=== PATIENT | female | born 1975 | race Caucasian/White ===

== ENCOUNTER → 2016-04-24 | Outpatient (CLI) | payer OTHER ==
[~2016-04-24] MED LIST: CELE100C PO; DICY10CA53 PO; METH-38 AD; OMEP20TA63 PO; PROG100C2 PO; PROG100C7 PO
--- NOTE | 2016-04-25 07:54 | PAIN ---
DATE OF SERVICE: 04/24/2016 INITIAL CONSULTATION OF PAIN CLINIC CHIEF COMPLAINT: Right-sided pain and mid back pain. HISTORY OF PRESENT ILLNESS: This patient is a 40-year-old female who presents with history of pain since November 2015, not a result of any specific injury or action that she is aware of, but has pain radiating into the right flank and the right inferior aspect of the rib margin and right upper quadrant of the abdomen since that time. The patient reports a sharp, stabbing with numbness and tingling in the anterior aspect of the lower rib cage, burning sensation in the mid upper abdomen. The patient has gone through several workouts through her primary care physician and found no significant findings in the abdomen or chest. She has chiropractic treatment, which helps with the low back as she has some low back pain which she reports as chronic, but this is very different from that. The patient reports that it is present, worse at night, awakens her at least 2-3 times at night, but does not affect her bowel or bladder control, but does affect her ability to walk and sit at her chair when she is at work, and she cannot get comfortable because of the pain that is a stinging and stabbing pain in the right side and anterior aspect of the inferior rib margin and abdomen. The patient reports no radiation to the lower extremities or upper extremities, upper mid back or low back. The patient reports her disability rating of the pain on 0 to 10, 10 being the worst, as 3 with family and home responsibilities and sexual behavior, 8 with recreation, and 9 with life support activities, 1 with social activity, 5 with occupation and 0 with self-care activities. The patient has tried Robaxin as well as Tylenol Arthritis strength which does help the pain decrease, but only about 50%. Again, the chiropractic treatment has helped her low back, but not this pain on the right side. The patient did have an MRI scan of the thoracic spine dated 03/05/2016 showing at T11-T12, a small right paracentral disk protrusion effacing the right ventral thecal sac and at T12-L1, a small broad-based central disk protrusion asymmetric disk bulge resulting in minimal flattening of the ventral thecal sac. PAST MEDICAL HISTORY: Significant for dizziness and headaches, low back pain and arthritis. PREVIOUS SURGERY: Include cholecystectomy, left foot bone spur removal, left shoulder surgery and a cervical spinal fusion. CURRENT MEDICATIONS: Include progesterone and Robaxin. ALLERGIES: THE PATIENT IS ALLERGIC TO SULFA. FAMILY HISTORY: Significant for back pain and arthritis. Also significant for tumors, heart disease, and hypertension. 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 REVIEW OF SYSTEMS: Positive for those items mentioned in history of present illness. All systems reviewed and otherwise negative. It is complete, full and well documented on the patient's chart. PHYSICAL EXAMINATION: VITAL SIGNS: Today, blood pressure 115/79, pulse 78, respirations 16, and temperature 98.6 degrees Fahrenheit. Height is 5 feet 2 inches and weighs 177 pounds. GENERAL: The patient is awake, alert, oriented, appropriate, and very pleasant demeanor. HEENT: Head shows normocephalic and atraumatic. Extraocular movements are intact and symmetrical. Oral cavity, mucous membranes moist and pink. Dentition is intact. NECK: Shows anterior throat supple without palpable lymphadenopathy noted. Swallow reflex is symmetrical. CHEST: Shows normal on inspection. Breath sounds are clear to auscultation bilaterally. HEART: Shows S1 and S2 clear. No murmurs auscultated. ABDOMEN: Soft, nontender, and nondistended. BACK: The patient's right rib margin shows some mild tenderness with palpation in the inferior aspect of the last 2 ribs in the rib margin itself as well as the soft tissue and abdominal wall anteriorly to the lateral aspect on the right side only. No masses are palpated. No rashes are demonstrated. No skin abnormalities throughout and this is true on the lateral aspect of the mid axillary line as well as to the posterior thoracic distribution of the back without abnormalities noted. No asymmetry in the musculature or palpable masses, nodes or muscles in this region. Left side is negative as well. The patient's back shows spine grossly midline, normal appearing cervical lordotic curvature, thoracic kyphotic curvature, and lumbar lordotic curvature. No significant difference with the appearance of the paraspinous musculature throughout the thoracic and lumbar paraspinous muscles. The patient shows good rotation motion of thoracic extension and flexion, right and left lateral rotation as well as lumbar lateral rotation, extension and flexion without exacerbation of pain on the right side. IMPRESSION: 1. This is a 40-year-old female with approximately 4-month history of mid and low back pain with radiating pain into the right inferior rib margin and right abdomen with some qualities of radicular pain. 2. MRI scan of thoracic spine as noted. 3. History of arthritis and low back pain. PLAN: Options were discussed with the patient including conservative medical management with physical therapy. She is doing exercises on her own and has had some chiropractic treatment as well, taking Tylenol and Robaxin without significant improvement. We did discuss a possible thoracic epidural steroid injection at T11-T12 spot at the site of the 2 paracentral disk protrusions to see if this is causing radicular pain as it appears to be by description and symptoms on the right side with right-sided disk protrusion at T11-T12. The patient will try Medrol Dosepak. In the meantime, she was given instruction and side effects to be aware with the medications. We will have her preauthorized with her insurance provider for a thoracic epidural steroid injection on her next visit. KARO MATTHEWS MD DR: DREW/lydia JOB#: [id number] / [id number]
== END | disposition home or self-care (01) ==
LOC: PNCL 07:54
PROVIDERS: ATTEND Anesthesiology
DX: M54.9 Dorsalgia, unspecified (principal); R10.9 Unspecified abdominal pain
CPT/HCPCS: 99213

== ENCOUNTER → 2016-05-12 | Outpatient (CLI) | payer OTHER ==
[~2016-05-12] MED LIST changes: +IOHEXOL 180 MG/ML 10 ML VIAL. ONE; +methylPREDNISolone ACETATE 40 MG/ML VIAL. ONE; +methylPREDNISolone ACETATE 80 MG/ML VIAL. ONE
--- NOTE | 2016-05-12 12:15 | PN ---
DATE: 05/12/2016 PROGRESS NOTE FOR PAIN CLINIC DIAGNOSES: Thoracic radiculopathy with thoracic degenerative disk disease. HISTORY OF PRESENT ILLNESS: The patient is a 40-year-old female who returns for followup, status post initial evaluation and Medrol Dosepak, which she reports helped about 50% with the pain in her back and right flank and right side. The patient reports also some right upper quadrant pain, but this is much less with the Medrol Dosepak. The patient reports it is still there, not quite a sore and much less sore in the back, but still there is some pain around the right flank and right upper quadrant. The patient reports the pain is a 4 on a scale of 10 currently, reports no new motor or sensory deficits, no new bowel or bladder incontinence or other complaints. PHYSICAL EXAMINATION: VITAL SIGNS: Today, the patient's blood pressure is 129/86, pulse 87, respirations 18, temperature 98.1 degrees Fahrenheit. Height is 5 feet 2 inches, weight is 180 pounds. GENERAL: The patient is awake, alert, oriented, appropriate, has a very pleasant demeanor. HEENT: Head shows normocephalic, atraumatic. Extraocular movements are intact and symmetrical. Oral cavity has mucous membranes moist and pink. Dentition is intact. NECK: Shows anterior throat supple without palpable lymphadenopathy noted. Swallow reflex is symmetrical. CHEST: Shows normal on inspection. Breath sounds are clear to auscultation bilaterally. HEART: Shows S1 and S2 clear. ABDOMEN: Soft, nontender, nondistended. No palpable organomegaly is noted. No rebound or guarding demonstrated. BACK: The patient's back shows spine grossly in the midline, the normal-appearing thoracic kyphosis and lumbar lordotic curvature. The patient's right flank shows some mild tenderness with palpation, but only very mildly and only diffusely, much less than on previous exam. No tenderness over the right upper quadrant. No palpable organomegaly once again and no rebound. Options were discussed with the patient. The patient's old chart was reviewed as her current medication regimen and updated. Current review of systems updated today as well. We will proceed with a thoracic epidural steroid injection today at the T11-T12 level with fluoroscopic guidance. Risks were again discussed including, but not limited to bleeding, infection, possibility of epidural hematoma, subsequent neurologic compromise, dural puncture, headaches, spinal cord and/or nerve damage, side effects of steroid medication and poor results regarding pain control. The patient understands and wishes to proceed. The patient will return to clinic in approximately 2 weeks for followup. He was counseled as to return appointment, activity level and side effects to be aware of. DIAGNOSES: Thoracic radiculopathy with thoracic degenerative disk disease. PROCEDURE: Thoracic epidural steroid injection in translaminar approach at the T11-T12 level using local anesthetic under sterile prep and drape with C-arm fluoroscopic guidance. Medication injected is 120 mg Depo-Medrol plus 10 mL of preservative-free normal saline and 2 mL of Isovue for contrast. CONDITION AT DISCHARGE: Stable. The patient tolerated procedure well, had no complications. KARO MATTHEWS MD DR: DREW/lydia JOB#: [id number] / [id number]
== END | disposition home or self-care (01) ==
LOC: PNCL 07:41
PROVIDERS: ATTEND Anesthesiology
DX: M51.14 Intervertebral disc disorders with radiculopathy, thoracic region (principal)
CPT/HCPCS: 62321; J1030; J1040

== ENCOUNTER → 2016-07-01 | Outpatient (CLI) | payer OTHER ==
--- NOTE | 2016-07-02 09:42 | PAIN ---
DATE OF SERVICE: 07/01/2016 PROGRESS NOTE FOR PAIN CLINIC DIAGNOSES: Thoracic radiculopathy with thoracic degenerative disk disease. HISTORY OF PRESENT ILLNESS: The patient is a 40-year-old female, who returns for followup status post thoracic epidural steroid injection x 1 on 05/12/2016. The patient reports she did very well for sleep was near 100% improvement. After that time, the pain gradually returned in the mid lower back. The patient reports some pain on the left side and the shoulder as well, but mostly in the mid back itself, on the left side greater than right, essentially bilaterally. The patient reports it has been awakened her from sleep again, get up in the middle of the night, repositioned, take pain medication and to get through the night as well. The patient reports no new motor or sensory deficits, no new bowel or bladder incontinence or other complaints, but still significant pain is noted. The patient reports pain is burning, stabbing, shooting tight and dull ____ sharp, rates as 9 on a scale of 10. It is worst at 7 at least. PHYSICAL EXAMINATION: VITAL SIGNS: Today, the patient's blood pressure is 114/81, pulse 80, respirations 18, temperature 98.2 degrees Fahrenheit, height is 5 feet 2 inches, weighs 179 pounds. GENERAL: The patient is awake, alert, oriented, appropriate, very pleasant demeanor. HEENT: Shows normocephalic, atraumatic. Extraocular movements are intact, symmetrical. Oral cavity, mucous membranes are moist and pink. Dentition is intact. NECK: Shows anterior throat supple without palpable lymphadenopathy noted. Swallow reflex is symmetrical. CHEST: Shows normal on inspection. Breath sounds clear to auscultation bilaterally. HEART: Shows S1 and S2 clear. ABDOMEN: Soft, nontender, nondistended. No palpable organomegaly, no rebound or guarding demonstrated. BACK: Shows spine grossly midline. Normal appearing thoracic kyphosis and lumbar lordotic curvature. The patient's low thoracic distribution paraspinous muscle shows some [id number] tenderness ____ symmetrical in appearance as is the upper lumbar distribution with some diffuse tenderness bilaterally in the lumbar paraspinous muscles without radiation. Options were discussed with the patient. The patient's old chart was reviewed as her current medication regimen updated. Current review of systems updated today as well. We will proceed with a second thoracic epidural steroid injection at T11-T12 level with fluoroscopic guidance. Risks were again discussed including, but not limited to bleeding, infection, possibility of epidural hematoma, subsequent neurologic compromise, dural puncture, headaches, spinal cord and/or nerve damage, side effects of steroid medication and poor results regarding pain control. The patient understands and wishes to proceed. The patient will return to clinic in approximately 2 weeks for followup, was counseled on return appointment, activity level and side effects to be aware of. DIAGNOSES: Thoracic radiculopathy with thoracic degenerative disk disease. PROCEDURE: Thoracic epidural steroid injection in translaminar approach at T11-T12 level using C-arm fluoroscopic guidance under sterile prep and drape using local anesthetic. MEDICATION INJECTED: A total of 120 mg Depo-Medrol plus 10 mL of preservative-free normal saline and 2 mL of Isovue for contrast. CONDITION AT DISCHARGE: Stable. The patient tolerated procedure well, had no complications. KARO MATTHEWS MD DR: DREW/nts JOB#: [id number] / [id number]
== END | disposition home or self-care (01) ==
LOC: PNCL 10:31
PROVIDERS: ATTEND Anesthesiology
DX: M51.14 Intervertebral disc disorders with radiculopathy, thoracic region (principal)
CPT/HCPCS: 62321; J1030; J1040

== ENCOUNTER → 2016-08-11 | Outpatient (CLI) | payer OTHER ==
[~2016-08-11] MED LIST changes: +PROG100C15 PO; -PROG100C7 PO
--- NOTE | 2016-08-11 17:32 | PAIN ---
DATE OF SERVICE: 08/11/2016 PROGRESS NOTE FOR PAIN CLINIC DIAGNOSES: Thoracic radiculopathy with thoracic degenerative disk disease. HISTORY OF PRESENT ILLNESS: The patient is a 41-yelena-old female, who returns for followup status post thoracic epidural steroid injections x 2, last seen on 07/01/2016. The patient reports she did well, but only for a few days after the injections, each time with near 100% improvement initially, but with only about 4 or 5 days of decreased pain. The patient reports the pain is in the mid back, low back radiating to the right side as it was previously. The patient reports 1 episode, where she has been increased low back pain radiating to bilateral posterior gluteus and thighs, which was very uncomfortable about 2 weeks ago, which is unable to change positions or stand and move for about 30 minutes. This is subsided on its own. The patient reports now it aching, tight shooting, tingling, burning and constant more on the right side across the mid back. The patient reports it is a 10 on a scale of 10 at its worst, is a 7 on average and 4th at least, is currently a 4 today. PHYSICAL EXAMINATION: VITAL SIGNS: The patient's blood pressure 115/78, pulse 76, respirations are 18, temperature 98.2 degrees Fahrenheit, height is 5 feet 2 inches, weighs 181 pounds. GENERAL: The patient is awake, alert, oriented, appropriate, very pleasant demeanor. HEENT: Head shows normocephalic, atraumatic. Extraocular movements are intact, symmetrical. Oral cavity, mucous membranes are moist and pink. Dentition is intact. NECK: Shows anterior throat supple without palpable lymphadenopathy noted. Swallow reflex is symmetrical. CHEST: Shows normal on inspection. Breath sounds clear to auscultation bilaterally. HEART: Shows S1 and S2 clear. ABDOMEN: Obese, soft, nontender, nondistended. No palpable organomegaly is noted. No rebound or guarding demonstrated. BACK: Shows spine grossly midline. Thoracic and lumbar paraspinous musculature is symmetrical on inspection with palpation in the low thoracic paraspinous musculature is very firm and tender, more on the right than the left, but this appears symmetrical, no evidence of atrophy, hypertrophy, no trigger points or radiation of pain. The patient shows good rotation and motion of the thoracic and lumbar spine, both laterally as well as extension and flexion without exacerbation of pain as well. Options were discussed with the patient. At this time, the patient's old chart was reviewed as her current medication regimen and updated. Current review of systems updated today as well. We will proceed with a third in the series of thoracic epidural steroid injection using fluoroscopic guidance. Risks were again discussed including, but not limited to bleeding, infection, possibility of epidural hematoma and subsequent neurologic compromise, dural puncture, headaches, spinal cord and/or nerve damage, side effects of steroid medication and poor results regarding pain control. The patient understands and wished to proceed. The patient will return to the clinic in approximately 2 weeks for followup, was counseled on return appointment, activity level and side effects to be aware of. DIAGNOSES: Thoracic radiculopathy with thoracic degenerative disk disease. PROCEDURES: Thoracic epidural steroid injection with C-arm fluoroscopic guidance under sterile prep and drape using local anesthetic. MEDICATIONS INJECTED: A total of 120 mg Depo-Medrol plus 10 of preservative-free normal saline and 2 mL of Isovue for contrast. CONDITION AT DISCHARGE: Stable. The patient tolerated procedure well, had no complications. KARO MATTHEWS MD DR: DREW/lydia JOB#: [id number] / [id number]
== END | disposition home or self-care (01) ==
LOC: PNCL 08:42
PROVIDERS: ATTEND Anesthesiology
DX: M51.14 Intervertebral disc disorders with radiculopathy, thoracic region (principal); Z88.2 Allergy status to sulfonamides
CPT/HCPCS: 62321; J1030; J1040

== ENCOUNTER → 2018-02-24 | Outpatient (CLI) | payer OTHER ==
[~2018-02-24] MED LIST changes: -IOHEXOL 180 MG/ML 10 ML VIAL. ONE; -methylPREDNISolone ACETATE 40 MG/ML VIAL. ONE; -methylPREDNISolone ACETATE 80 MG/ML VIAL. ONE
--- NOTE | 2018-02-24 16:52 | RAD ---
EXAM: Cervical spine, 3 views. HISTORY: Pain. COMPARISON: None. FINDINGS: 3 views of the cervical spine are obtained. There is instrumented intraspinal fusion and interbody fusion and C5-C6. There is degenerative endplate remodeling with anterior predominant spurring primarily at C6-T1. There is facet arthropathy at multiple levels. There is a tiny left cervical rib. IMPRESSION: 1. Instrumented fusion and C5-C6. 2. Multilevel degenerative change, primarily at the lower cervical levels. 2. Tiny left cervical rib. Electronically signed by: Risa Beltran MD (02/24/2018 4:48 PM) [facility]
== END | disposition home or self-care (01) ==
LOC: RAD 16:04
PROVIDERS: ATTEND Neurological Surgery
DX: M47.22 Other spondylosis with radiculopathy, cervical region (principal)
CPT/HCPCS: 72040

== ENCOUNTER → 2018-03-07 | Outpatient (CLI) | payer OTHER ==
[~2018-03-07] MED LIST changes: +PROG100C10 PO; -PROG100C2 PO; +SERT50TA PO
--- NOTE | 2018-03-07 20:59 | PAIN ---
DATE OF SERVICE: 03/07/2018 PROGRESS NOTE FOR PAIN CLINIC DIAGNOSES: Cervical radiculopathy with cervical degenerative disk disease and cervical post-laminectomy syndrome. HISTORY OF PRESENT ILLNESS: This is a 42-year-old female who returns for followup, last seen on 08/11/2016. The patient had thoracic epidural steroid injection at that time, did very well with 100% improvement for a limited period of time. The patient reports it as time has gone over the last year or so, the pain has begun to return in the base of her neck and shoulders, mostly in the right upper extremity greater than the left, radiating into the bilateral shoulders, bilateral posterior arms, forearms as well as the biceps and especially the triceps on the left. The patient reports it is aching, sharp, tight, shooting, stabbing, burning, cramping, tingling with constant pain, becoming more severe, more unbearable, worse with activity, worse with reaching her arms over her head, especially on the left side. The patient reports it is a 10 on a scale of 10 at its worst, 8 on average, 6 at its least and is a 7 today. The patient reports it is keeping her awake from sleep at night about every 4 hours, she has to wake up, reposition. She has been taking [place], which is helpful. The patient has been doing therapy on her own. She has had some physical therapy in the past and is doing the same exercises, also has been going to the gym at least 3 times a week but is down to twice a week now because of the pain, doing good strengthening and stretching exercises with her neck and shoulders as well as her upper extremities but does not seem to be decreasing the pain. The patient did try an oral prednisone pack as well, which is not significantly helpful as well. The patient reports no new loss of motor function but significant pain and radicular pain as noted. The patient did have new MRI scan of the cervical spine dated 02/08/2018 showing C5-C6 surgical changes of ACDF, dorsal osteophytic spurring noted at the level of the intervertebral disk space resulting in local contour deformity, bilateral neural foraminal normal appearance with mild central canal stenosis; C6-C7 shows broad-based posterior disk osteophyte complex with resulting in [id number] left and mild right foraminal narrowing with mild central canal stenosis as well as C7-T1 with osteophyte formation and minimal broad-based posterior disk osteophyte formation. PHYSICAL EXAMINATION: VITAL SIGNS: The patient's blood pressure is 113/77, pulse 83, respirations are 18 and temperature 98.5 degrees Fahrenheit. Height is 5 feet 2 inches and weighs 146 pounds. GENERAL: The patient is awake, alert, oriented, appropriate and very pleasant demeanor. HEENT: Head shows normocephalic and atraumatic. Extraocular muscles are intact and symmetrical. Oral cavity: Mucous membranes moist and pink. Dentition is intact. NECK: Shows anterior throat supple without palpable lymphadenopathy noted. Swallow reflex is symmetrical. CHEST: Shows normal with inspection. Breath sounds clear to auscultation bilaterally. HEART: Shows S1 and S2 clear. No murmurs auscultated. ABDOMEN: Soft, nontender and nondistended. No palpable organomegaly is noted. No rebound or guarding demonstrated. BACK: The patient's back shows spine grossly in the midline. Cervical lordotic curvature as well as a thoracic kyphotic curvature maintained. The patient's neck shows limited rotational motion, especially to the left side with significant pain in the past 45 degrees. Right side is more mobile but with significant pain as well past 45 degrees in the base of the neck on the right. Extension of the cervical spine is significantly tender bilaterally in the inferior aspect of the cervical paraspinous musculature as well as the trapezius muscles with some radiation into the left arm and posterior trapezius that is on the left with extension and full forward flexion was performed without difficulty and without pain reported. EXTREMITIES: The patient's upper extremities show deep tendon reflexes at 2+ in biceps, triceps tendons. 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 Biceps are 5/5 bilaterally. Peripheral pulses are 2+ radial distribution. No peripheral edema is noted bilaterally. Options were discussed with the patient. The patient's old chart was reviewed as well as her current medication regimen updated. Current review of systems updated today as well and we will preauthorize the patient for a cervical epidural steroid injection as she has significant radicular pain in the C5-C6 and C6-C7 dermatomal distribution, more on the left than the right but present bilaterally. The patient is currently doing physical therapy exercises, stretching and strengthening on her own as well as working out at the gym and will continue to do this as tolerated. We will encourage her to maintain the strength and stretching exercise, especially with the neck and shoulders. We will follow up in approximately 1 week. We will plan on cervical epidural steroid injection at that time. KARO MATTHEWS MD DR: DREW/lydia JOB#: [id number] / [id number]
== END | disposition home or self-care (01) ==
LOC: PNCL 14:53
PROVIDERS: ATTEND Anesthesiology
DX: M50.11 Cervical disc disorder with radiculopathy, high cervical region (principal); M96.1 Postlaminectomy syndrome, not elsewhere classified; M25.78 Osteophyte, vertebrae
CPT/HCPCS: G0463

== ENCOUNTER → 2018-03-14 | Outpatient (CLI) | payer OTHER ==
[~2018-03-14] MED LIST changes: +IOHEXOL 180 MG/ML 10 ML VIAL. ONE; -PROG100C10 PO; +PROG100C2 PO; +methylPREDNISolone ACETATE 40 MG/ML VIAL. ONE; +methylPREDNISolone ACETATE 80 MG/ML VIAL. ONE
--- NOTE | 2018-03-14 19:11 | PAIN ---
DATE OF SERVICE: 03/14/2018 PROGRESS NOTE FOR PAIN CLINIC DIAGNOSES: Cervical radiculopathy with cervical degenerative disk disease and post-cervical laminectomy syndrome. HISTORY OF PRESENT ILLNESS: The patient is a 42-year-old female who returns for followup status post initial evaluation and preauthorization for cervical epidural steroid injection. The patient has obtained that now and would like to proceed. The patient still has pain in the base of the neck and shoulders, right and left upper extremity, somewhat worse on the right than the left side. The patient reports no new motor or sensory deficits, no new changes. The patient reports her pain is an 8 on a scale of 10 at its worst, 7 on average, 3 at its least and is a 7 today. The patient reports it is aching, sharp, dull, shooting, stabbing, burning, tingling, radiating, becoming more severe with time. The patient reports it awakens her from sleep frequently. Does not report any new motor or sensory deficits. PHYSICAL EXAMINATION: VITAL SIGNS: The patient's blood pressure is 111/74, pulse 80, respirations are 16, temperature is 98.0 degrees Fahrenheit. Height is 5 feet 2 inches, weight is 146 pounds. GENERAL: The patient is awake, alert, oriented, appropriate, very pleasant demeanor. HEENT: Head shows normocephalic, atraumatic. Extraocular movements are intact and symmetrical. Oral cavity shows mucous membranes moist and pink. Dentition intact. NECK: Shows anterior throat supple without palpable lymphadenopathy noted. Swallow reflex symmetrical. CHEST: Shows normal with inspection. Breath sounds clear to auscultation bilaterally. HEART: Shows S1, S2 clear. No murmurs auscultated. ABDOMEN: Soft, nontender, nondistended. No palpable organomegaly is noted. No rebound or guarding demonstrated. BACK: Shows spine grossly in the midline, normal appearing cervical lordotic curvature, thoracic kyphotic curvature. Cervical paraspinous muscle shows symmetrical on inspection, on palpation shows some moderate tenderness bilaterally, but only diffusely without radiation. The patient has good rotational motion of cervical spine both laterally as well as extension and flexion without significant difficulty or pain reported. EXTREMITIES: Upper extremities show deep tendon reflexes at 2+ in the biceps and triceps tendons. Motor exam is strong with 4/5 on the left, triceps is otherwise 5/5 bilaterally with log operations coordinator strength and bicep flexion. Peripheral pulses are 2+ radial distribution. No peripheral edema is noted bilaterally. Options were discussed with the patient. The patient's old chart was reviewed as her current medication regimen updated. Current review of systems updated today as well. We will proceed with a first in this series of cervical epidural steroid injection today with fluoroscopic guidance. Risks were again discussed including, but not limited to, bleeding, infection, possibility of epidural hematoma, subsequent neurological compromise, dural puncture, headaches, spinal cord and/or nerve damage, side effects of steroid medication and poor results regarding pain control. The patient understands and wished to proceed. The patient will return to clinic in approximately 2 weeks for followup, was counseled on return appointment, activity level and side effects to be aware of. DIAGNOSES: Cervical radiculopathy with cervical degenerative disk disease and post-cervical laminectomy syndrome. PROCEDURE: Cervical epidural steroid injection, translaminar approach C6-C7 level using C-arm fluoroscopic guidance under sterile prep and drape using local anesthetic. MEDICATION INJECTED: A total of 120 mg Depo-Medrol plus 5 mL of preservative-free normal saline and 2 mL of Isovue for contrast. CONDITION ON DISCHARGE: Stable. The patient tolerated the procedure well, had no complications. KARO MATTHEWS MD DR: DREW/lydia JOB#: [id number] / [id number]
== END | disposition home or self-care (01) ==
LOC: PNCL 15:14
PROVIDERS: ATTEND Anesthesiology
DX: M50.123 Cervical disc disorder at C6-C7 level with radiculopathy (principal); M96.1 Postlaminectomy syndrome, not elsewhere classified; Z88.2 Allergy status to sulfonamides
CPT/HCPCS: 62321; J1030; J1040; Q9965

== ENCOUNTER → 2018-03-28 | Outpatient (CLI) | payer OTHER ==
[~2018-03-28] MED LIST changes: -IOHEXOL 180 MG/ML 10 ML VIAL. ONE; -methylPREDNISolone ACETATE 40 MG/ML VIAL. ONE; -methylPREDNISolone ACETATE 80 MG/ML VIAL. ONE
--- NOTE | 2018-03-28 22:02 | PAIN ---
DATE OF SERVICE: 03/28/2018 DIAGNOSES: Cervical radiculopathy with cervical degenerative disk disease and cervical post-laminectomy syndrome. HISTORY OF PRESENT ILLNESS: The patient is a 42-year-old female who returns for followup status post cervical epidural steroid injection x 1. The patient reports about 60% improvement for the first 2 weeks, but the pain is returning now in the base of neck and shoulders, in the right upper extremity with some tingling and numbness in the right hand with some shocking sensations as well as the right arm, some in the left, but mostly on the right side of the anterior shoulder, posterior shoulder blade, into the right arm, radiating to the biceps, into the forearm and hand, again especially on the right side. The patient reports it is a 9 on a scale of 10 at its worst, 8 on average, and a 5 at its least. While she was doing better, she was increasing her activity with greater distance walking, doing work activities, driving easier using her upper extremities with greater ease and comfort. She was moving some furniture over the weekend and it seems to have made the pain somewhat worse. She is having difficulty with gripping with her hands, especially on the right. The patient reports it does not awaken her from sleep at night. She is still sleeping well about 8 hours. No new motor or sensory deficits or other complaints. The patient reports it is radiating, constant, burning, and tight. PHYSICAL EXAMINATION: VITAL SIGNS: The patient's blood pressure is 116/80, pulse 77, respirations 18, temperature 98.2 degrees Fahrenheit, height is 5 feet 2 inches, weighs 146 pounds. GENERAL: The patient is awake, alert, oriented, appropriate, very pleasant demeanor. HEENT: Head shows normocephalic, atraumatic. Extraocular movements are intact and symmetrical. Oral cavity: Oropharynx is moist and pink. Dentition is intact. NECK: Shows anterior throat supple without palpable lymphadenopathy noted. Swallow reflex symmetrical. CHEST: Shows normal with inspection. Breath sounds clear to auscultation bilaterally. HEART: Shows S1, S2 clear. No murmurs auscultated. ABDOMEN: Soft, nontender, nondistended. No palpable organomegaly is noted. No rebound or guarding demonstrated. BACK: Shows spine grossly in the midline, normal-appearing cervical lordotic curvature, thoracic kyphotic curvature and lumbar lordotic curvature. Cervical paraspinous muscle shows symmetrical on inspection, on palpation shows some moderate tenderness diffusely, but only in the inferior aspect of the cervical paraspinous musculature and into the right greater than left superior medial and lateral trapezius. No radiation is demonstrated. The patient has good rotational motion of cervical spine both laterally as well as extension and flexion without significant increase in pain as well. EXTREMITIES: Upper extremities show deep tendon reflexes 2+ in biceps and triceps tendons. Motor examination is possibly 4 on a scale of 5 on the left trapezius and 5/5 on the right. Peripheral pulses are 2+ radial distribution. No peripheral edema is noted. Options were discussed with the patient. The patient's old chart was reviewed as her current medication regimen updated. Current review of systems updated today as well. We will preauthorize the patient for a second cervical epidural steroid injection as she did very well after the first injection for about 2 weeks. The pain is returning now in a radicular pattern in the C5-C6 and C6-C7 dermatomal distribution, again worse on the right than the left, and we will plan on cervical epidural steroid injection #2 at the C6-C7 level after preauthorization on the patient's return. KARO MATTHEWS MD DR: DREW/lydia JOB#: [id number] / [id number]
== END | disposition home or self-care (01) ==
LOC: PNCL 14:56
PROVIDERS: ATTEND Anesthesiology
DX: M50.10 Cervical disc disorder with radiculopathy, unspecified cervical region (principal); M96.1 Postlaminectomy syndrome, not elsewhere classified
CPT/HCPCS: G0463

== ENCOUNTER → 2018-04-05 | Outpatient (CLI) | payer OTHER ==
[~2018-04-05] MED LIST changes: +IOHEXOL 180 MG/ML 10 ML VIAL. ONE; +PROG100C10 PO; -PROG100C2 PO; +methylPREDNISolone ACETATE 40 MG/ML VIAL. ONE; +methylPREDNISolone ACETATE 80 MG/ML VIAL. ONE
--- NOTE | 2018-04-05 21:12 | PAIN ---
DATE OF SERVICE: 04/05/2018 PROGRESS NOTE FOR PAIN CLINIC DIAGNOSES: Cervical radiculopathy with cervical degenerative disk disease and post cervical laminectomy syndrome. HISTORY OF PRESENT ILLNESS: The patient is a 42-year-old female who returns for followup status post cervical epidural steroid injection x 1 that gave the patient about 60% improvement for the first 2 weeks after last injection. The pain is returning now in the base of the neck and right greater than left upper extremity. The patient reports no new motor or sensory deficits, but still significant pain in the base of the neck and shoulders as well as the upper extremities. The patient reports it is a 10 on a scale of 10 at its worst, 9 on average, 7 at its least and is a 9 today. The patient reports it is waking her from sleep occasionally, but not every night. 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 The patient reports no new motor or sensory deficits, no new changes. PHYSICAL EXAMINATION: VITAL SIGNS: Today, the patient's blood pressure is 114/44, pulse is 83, respirations 16, temperature is 98.5 degrees Fahrenheit. Weight is 151 pounds. GENERAL: The patient is awake, alert, oriented, appropriate, very pleasant demeanor. HEENT: Head shows normocephalic, atraumatic. Extraocular movements are intact and symmetrical. Oral cavity, mucous membranes are moist and pink. Dentition is intact. NECK: Shows anterior throat supple without palpable lymphadenopathy noted. Swallow reflex symmetrical. CHEST: Shows normal with inspection. Breath sounds clear to auscultation bilaterally. HEART: Shows S1, S2 clear. No murmurs auscultated. ABDOMEN: Soft, nontender, nondistended. No palpable organomegaly is noted. No rebound or guarding demonstrated. BACK: Shows spine grossly in the midline. Normal appearing thoracic kyphosis and lumbar lordotic curvature. Cervical paraspinous muscle shows symmetrical on inspection, on palpation shows some moderate tenderness, but only diffusely without significant radiation. The patient shows good rotational motion of cervical spine both laterally as well as extension and flexion without significant limitation. EXTREMITIES: Upper extremities show deep tendon reflexes 2+ in the bicep and tricep tendons. Motor exam is strong at approximately 4 on a scale of 5, left and 5/5 on the right with olive picker strength, bicep and tricep flexion. Peripheral pulses are 2+ radial. No peripheral edema is noted bilaterally. Options were discussed with the patient. The patient's old chart was reviewed as her current medication regimen updated. Current review of systems updated today as well. We will proceed with a second in this series of cervical epidural steroid injection today with fluoroscopic guidance. Risks were again discussed including, but not limited to, bleeding, infection, possibility of epidural hematoma, subsequent neurological compromise, dural puncture, headaches, spinal cord and/or nerve damage, side effects of steroid medication and poor results regarding pain control. The patient understands and wished to proceed. The patient will return to the clinic in approximately 2 weeks for followup. He was counseled on his on return appointment, activity level and side effects to be aware of. DIAGNOSES: Cervical radiculopathy with cervical degenerative disk disease and post cervical laminectomy syndrome. PROCEDURE: Cervical epidural steroid injection, translaminar approach C6-C7 level using C-arm fluoroscopic guidance under sterile prep and drape using local anesthetic. MEDICATION INJECTED: A total of 120 mg Depo-Medrol plus 5 mL of preservative-free normal saline and 2 mL of Isovue for contrast. CONDITION AT DISCHARGE: Stable. The patient tolerated the procedure well, had no complications. KARO MATTHEWS MD DR: DREW/lydia JOB#: [id number] / [id number]
== END | disposition home or self-care (01) ==
LOC: PNCL 13:55
PROVIDERS: ATTEND Anesthesiology
DX: M50.123 Cervical disc disorder at C6-C7 level with radiculopathy (principal); M96.1 Postlaminectomy syndrome, not elsewhere classified; Z88.2 Allergy status to sulfonamides
CPT/HCPCS: 62321; J1030; J1040; Q9965

== ENCOUNTER → 2018-05-27 | Outpatient (CLI) | payer OTHER ==
[~2018-05-27] MED LIST changes: +CONTRAST GIVEN. MC PRN; -IOHEXOL 180 MG/ML 10 ML VIAL. ONE; +IOHEXOL 300 MG/ML 50 ML VIAL. IT ONE; -PROG100C10 PO; +PROG100C2 PO; -methylPREDNISolone ACETATE 40 MG/ML VIAL. ONE; -methylPREDNISolone ACETATE 80 MG/ML VIAL. ONE
[2018-05-27 09:05] VITALS: BP 109/80
[2018-05-27 09:42] VITALS: BP 107/69
--- NOTE | 2018-05-27 10:01 | NUR ---
Patient in CV OBS after Myelogram. Patient alert and oriented x4, follows all commands and able to make all needs and wants known verbally. Patient up to bathroom without difficulty and vitals stable. Patient walked out with mother without difficulty with images in hand.
--- NOTE | 2018-05-27 10:48 | RAD ---
Cervical myelogram, 05/27/2018: History: Cervical radiculopathy, bilateral arm pain Under local anesthesia, aseptic conditions and fluoroscopic guidance a lumbar puncture was performed at the L2-3 level utilizing a 25-gauge Saqib spinal needle. Good clear CSF flow was obtained following which 11 cc of Omnipaque 300 was injected into the thecal sac. The needle was then removed and hemostasis obtained. The contrast material was maneuvered into the cervical region with appropriate digital imaging performed. 2.3 minutes of fluoroscopy time was utilized. 10 fluoroscopic spot images were recorded. The patient tolerated the procedure well and was sent to CT in good condition. The following findings are delineated on the myelogram: 1. There has been previous fusion of the C5 and C6 vertebral bodies with a fixation plate and surgical screws present anteriorly. 2. There are moderate anterior extradural defects at C5-6 and C6-7. No high-grade spinal stenosis is evident. 3. There is fairly symmetric opacification of the cervical nerve root sleeves bilaterally. CT of the cervical spine-post myelogram, 05/27/2018: Multidetector CT imaging was performed with multiplanar reconstructions produced. The following findings are delineated: 1. No fracture, subluxation or destructive bony lesion is seen. 2. At C2-3 there is slight posterior disc bulging at the midline. The central spinal canal and neural foramina are well maintained. 3. At C3-4 there is similar slight posterior annular bulging at the midline. The central spinal canal and neural foramina are well maintained. 4. At C4-5 there is minimal posterior bulging. The central spinal canal and neural foramina are well maintained. 5. At the fused C5-6 disc space there is moderate posterior spurring at the midline. The thecal sac measures 10 mm in AP diameter at this level. The neural foramina are well maintained. 6. At C6-7 there is disc space narrowing with moderate anterior and posterior disc bulging. There is moderate posterior disc bulging, more so on the right. The thecal sac measures 10 mm in AP diameter at the midline. The spurring is causing mild bilateral foraminal narrowing, more so on the left. There is slightly decreased opacification of the left nerve root sleeve at this level compared to the right. 7. At C7-T1 there is disc space narrowing with mild marginal spurring. The posterior disc margin is not clearly defined. There appears to be mild left foraminal encroachment. IMPRESSION: 1. Previous anterior spinal fusion and instrumentation at C5-6. 2. Mild to moderate scattered degenerative changes as delineated above. 3. Moderate degenerative disc disease at C6-7, with mild bilateral foraminal narrowing, left greater than right. 4. Mild left foraminal encroachment at C7-T1. PQRS Compliance Statement: One or more of the following individualized dose reduction techniques were utilized for this examination: 1. Automated exposure control 2. Adjustment of the mA and/or kV according to patient size 3. Use of iterative reconstruction technique
== END | disposition home or self-care (01) ==
LOC: RAD 07:40
PROVIDERS: ATTEND Neurological Surgery
DX: M50.123 Cervical disc disorder at C6-C7 level with radiculopathy (principal); M43.22 Fusion of spine, cervical region; M48.03 Spinal stenosis, cervicothoracic region; M46.03 Spinal enthesopathy, cervicothoracic region
CPT/HCPCS: 72126; 72240; Q9967